=== PATIENT | female | born 1965 | race Caucasian/White ===

== ENCOUNTER → 2016-11-25 | Outpatient (CLI) | payer BC ==
[~2016-11-25] MED LIST: IOHEXOL 300 MG/ML 100ml INJECTION ONE; NORMAL SALINE 100 ML ONE; SALINE FLUSH 10ml SYRINGE ONE
--- NOTE | 2016-11-25 14:04 | DI ---
Indication: ITS.REASON: ABD PAIN PROCEDURE: CT ABD/PELVIS W/CONTRAST ONLY: Encounter: Initial Comparison: None Technique: Axial CT images were performed through the abdomen and pelvis after the administration of intravenous contrast. Coronal and sagittal two-dimensional reformats. Automated Exposure Control and Iterative Reconstruction dose reducing techniques were utilized. Contrast: Omnipaque 300 89 mL Findings: The lung bases are clear. The liver is normal. Two gallstones, with one near the takeoff of the cystic duct. The gallbladder shows no obvious wall thickening. The spleen, pancreas and adrenal glands are within normal limits. The kidneys are normal. No abdominal or pelvic lymphadenopathy. Bladder is unremarkable. Uterus and ovaries are grossly normal. Small amount of free pelvic fluid. Sigmoid diverticulosis without acute diverticulitis. No bowel obstruction. The appendix is normal. No free air. Bone windows show a sclerotic probable bone island in the left iliac wing. Impression: Cholelithiasis with one stone in the region of the gallbladder neck and cystic duct that could potentially be causing intermittent cystic duct obstruction. No definite wall thickening or pericholecystic inflammation to confirm acute cholecystitis. Right upper quadrant ultrasound may be helpful for further evaluation. .
== END ==
LOC: IMA 12:23
PROVIDERS: ATTEND Family Medicine
DX: K80.20 Calculus of gallbladder without cholecystitis without obstruction (principal); K57.30 Diverticulosis of large intestine without perforation or abscess without bleeding
CPT/HCPCS: 74177; J7050; Q9967